=== PATIENT | female | born 1955 | race American Indian/Alaskan Native ===

== ENCOUNTER 2018-11-16 00:03 | Inpatient (IN) | payer SELFPAY ==
[2018-11-16 01:08] LABS: Basophils # (Auto) 0.1 K/mm3 (0.0-0.1); Basophils % (Auto) 0.9 % (0.0-1.8); Eosinophils % (Auto) 0.4 % (0.0-4.3); Hematocrit 40.8 % (30.3-42.9); Hemoglobin 13.5 gm/dl (10.1-14.3); Lymphocytes # (Auto) 1.6 K/mm3 (1.2-5.4); Lymphocytes % (Auto) 26.3 % (13.4-35.0); Mean Corpuscular HGB Conc 33 % (30-34); Mean Corpuscular Volume 74 fl (79-97); Monocytes # (Auto) 0.7 K/mm3 (0.0-0.8); Monocytes % (Auto) 11.8 % (0.0-7.3); Red Blood Count 5.53 M/mm3 (3.65-5.03); Red Cell Distribution Width 18.8 % (13.2-15.2)
[2018-11-16 01:23] LABS: Calcium 9.6 mg/dL (8.4-10.2)
[2018-11-16 01:25] LABS: Platelet Count 266 K/mm3 (140-440)
[2018-11-16] MEDS ORDERED: NORMODYNE IV ONE (02:22)
[2018-11-16] MEDS ORDERED: VANCOMYCIN/NS 1 GM/250 ML 1 GM/250 ML BAG IV ONE (02:24)
[2018-11-16] MEDS ORDERED: MORPHINE IV ONE (02:40)
[2018-11-16] MEDS ORDERED: LASIX IV ONE (02:51)
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
--- NOTE | 2018-11-16 03:05 | XRay Report ---
PROCEDURE: XR CHEST 1V AP TECHNIQUE: Chest radiograph single view. HISTORY: LE edema COMPARISONS: None . FINDINGS: Heart: The heart size is prominent.. Mediastinum/Vessels: Normal. Lungs/Pleural space: Normal. Bony thorax: No acute osseous abnormality. Life support devices: None. IMPRESSION: There is no evidence of an acute infiltrate or effusion. Mild cardiomegaly.. This document is electronically signed by Lauren Herzog DO., November 16 2018 03:03:20 AM ET
--- NOTE | 2018-11-16 03:06 | XRay Report ---
PROCEDURE: XR FOOT 2V RT TECHNIQUE: Right foot radiographs, AP and lateral views. HISTORY: foot pain COMPARISONS: None . FINDINGS: Fracture (s) and/or Dislocation(s): None . Alignment: There is a moderate hallux valgus deformity . Joint space(s): Mild narrowing of the joint spaces . Soft tissues: Mild diffuse soft tissue swelling . Bone mineralization: Normal . Foreign bodies: None . Calcaneal spurring: Small inferior spur . IMPRESSION: There is no evidence of an acute fracture. Mild arthritis. Mild diffuse soft tissue swel ling. . This document is electronically signed by Lauren Herzog DO., November 16 2018 03:04:58 AM ET
--- NOTE | 2018-11-16 03:08 | XRay Report ---
PROCEDURE: XR FOOT 2V LT TECHNIQUE: Left foot radiographs, AP and lateral views. HISTORY: foot pain COMPARISONS: None . FINDINGS: Fracture (s) and/or Dislocation(s): None . Alignment: Mild hallux valgus deformity . Joint space(s): Mild narrowing of joint spaces . Soft tissues: Mild diffuse soft tissue swelling . Bone mineralization: Normal . Foreign bodies: None . Calcaneal spurring: Small inferior spur . IMPRESSION: There is no evidence of an acute fracture. Mild arthritis. Mild diffuse soft tissue swel ling . This document is electronically signed by Lauren Herzog DO., November 16 2018 03:06:31 AM ET
--- NOTE | 2018-11-16 03:13 | XRay Report ---
PROCEDURE: XR TIBIA FIBULA 2V RT TECHNIQUE: Right tibia and fibula radiographs, AP and lateral views. HISTORY: Leg swelling leg pain COMPARISONS: None. FINDINGS: Fracture (s) and/or Dislocation(s): None. Joint space(s): Normal. Soft tissues: Diffuse soft tissue swelling. Bone mineralization: Normal. Foreign bodies: None. IMPRESSION: No evidence of an acute fracture. There is mild diffuse soft tissue swelling. This document is electronically signed by Lauren Herzog DO., November 16 2018 03:11:51 AM ET
[2018-11-16 03:14] LABS: Albumin 2.9 g/dL (3.9-5); Bilirubin,Direct 0.8 mg/dL (0-0.2)
--- NOTE | 2018-11-16 03:17 | XRay Report ---
PROCEDURE: XR TIBIA FIBULA 2V LT TECHNIQUE: Left tibia and fibula radiographs, AP and lateral views. HISTORY: leg pain COMPARISONS: None. FINDINGS: Fracture (s) and/or Dislocation(s): None. Joint space(s): Normal. Soft tissues: There is generalized soft tissue swelling.. Bone mineralization: Normal. Foreign bodies: None. IMPRESSION: There is no acute bony abnormality. There is generalized soft tissue swelling.. This document is electronically signed by Cristóbal Regan MD., November 16 2018 03:15:32 AM ET
[2018-11-16] MEDS ORDERED: ZOFRAN IV PRN (04:19)
[2018-11-16] MEDS ORDERED: TYLENOL PO PRN (04:19)
[2018-11-16] MEDS ORDERED: PERCOCET 5/325 PO PRN (04:19)
[2018-11-16] MEDS ORDERED: SODIUM CHLORIDE FLUSH SYRINGE 10 ML IV PRN (04:19)
--- NOTE | 2018-11-16 04:25 | History and Physical Report ---
History of Present Illness Date of examination: 11/16/18 History of present illness: 63-year-old woman with a history of hypertension, chronic pain carcinogens through complaints of lower extremity edema over the last 1 month. She has been off her hydrochlorothiazide for 1 month. Denies any PND, orthopnea, shortness o f breath Constitutional: no weight loss, chills, fever Ears, eyes, nose, mouth and throat: no nasal congestion, no nasal discharge, no sinus pressure, no vision change, no red eye. Neck: No neck pain or rigidity. Cardiovascular: no chest pain, palpitations Respiratory: no cough, shortness of breath Gastrointestinal no abdominal pain, hemotochezia Genitourinary : no frequency , no hematuria Musculoskeletal: no joint swelling or muscle ache Integumentary: no rash, no pruritis Neurological: nono focal weakness Endocrine: no cold or heat intolerance, no polyuria or polydipsia Hematologic/Lymphatic: no easy bruising, no easy bleeding, no gland swelling Allergic/Immunologic: no urticaria, no angioedema. PAST MEDICAL HISTORY: Hypertension, chronic pain PAST SURGICAL HISTORY: Hernia repair, knee SOCIAL HISTORY: Denies alcohol, + smoked 2 packs per month,no drugs FAMILY HISTORY: Hypertension Medications and Allergies Allergies Allergy/AdvReac Type Severity Reaction Status Date / Time latex Allergy Hives Verified 11/16/18 02:29 Home Medications Medication Instructions Recorded Confirmed Last Taken Type HCTZ 25 mg PO DAILY 11/16/18 11/16/18 Unknown History Active Meds: Active Medications Acetaminophen (Tylenol) 650 mg PO Q4H PRN PRN Reason: Pain MILD(1-3)/Fever >100.5/CUEVAS Enoxaparin Sodium (Lovenox) 30 mg SUB-Q QDAY [facility] Furosemide (Lasix) 40 mg IV 0600,1800 [facility] Ondansetron HCl (Zofran) 4 mg IV Q8H PRN PRN Reason: Nausea And Vomiting Oxycodone/Acetaminophen (Percocet 5/325) 1 tab PO Q6H PRN PRN Reason: Pain, Moderate (4-6) Sodium Chloride (Sodium Chloride Flush Syringe 10 Ml) 10 ml IV BID [facility] Exam - Physical Exam Narrative exam: Gen. appearance: Patient lying in bed, no apparent distress HEENT: Normocephalic, atraumatic, pupils equally round and reactive to light, extraocular movement intact, and no sclericterus,. No JVD or thyromegaly or nodule,neck supple, no carotid bruit ,mucous membranes moist, no exudate or erythema Heart: S1, S2, regular rate and rhythm Lungs: Clear bilaterally, breathing comfortable Abdomen: Positive bowel sounds,+ hernia, non-tender, nondistended, no organomegaly Extremity 3+ edema up to knees, non cyanosis, clubbing Skin: Top of the right foot shallow wound without drainage, wound bed is clean no rash, dry, warm Neuro: Oriented 3, cranial nerves II-12 intact, speech is fluent, motor and sensory intact - Constitutional Vitals: Temp Pulse Resp BP Pulse Ox 97.5 F L 73 174 H 166/118 100 11/16/18 00:20 11/16/18 03:48 11/16/18 02:21 11/16/18 03:48 11/16/18 02:21 Results - Labs CBC & Chem 7: 11/16/18 00:33 11/16/18 00:33 Labs: Abnormal lab results 11/16/18 11/16/18 11/16/18 Range/Units 00:33 00:33 00:33 RBC 5.53 H (3.65-5.03) M/mm3 MCV 74 L (79-97) fl MCH 25 L (28-32) pg RDW 18.8 H (13.2-15.2) % [place] % (Auto) 11.8 H (0.0-7.3) % Sodium 133 L (137-145) mmol/L Chloride 95.3 L (98-107) mmol/L Glucose 136 H (65-100) mg/dL Total Bilirubin (0.1-1.2) mg/dL Direct Bilirubin (0-0.2) mg/dL NT-Pro-B Natriuret Pep 6118 H (0-900) pg/mL Albumin (3.9-5) g/dL 11/16/18 Range/Units 00:33 RBC (3.65-5.03) M/mm3 MCV (79-97) fl MCH (28-32) pg RDW (13.2-15.2) % [place] % (Auto) (0.0-7.3) % Sodium (137-145) mmol/L Chloride (98-107) mmol/L Glucose (65-100) mg/dL Total Bilirubin 1.60 H (0.1-1.2) mg/dL Direct Bilirubin 0.8 H (0-0.2) mg/dL NT-Pro-B Natriuret Pep (0-900) pg/mL Albumin 2.9 L (3.9-5) g/dL - Imaging and Cardiology EKG: image reviewed Chest x-ray: report reviewed Assessment and Plan X-ray of the foot, tib-fib reviewed Assessment Lower extremity edema with elevated BNP, evaluate for CHF Hypertension Lower extremity wound Plan Admit to medicine Diurese with IV Lasix, check echo Consult wound care, DVT prophylaxis
[2018-11-16] MEDS: LASIX IV SCH ×2 (06:20→17:54)
[2018-11-16] MEDS ORDERED: LOVENOX SUB-Q SCH (10:00)
[2018-11-16] MEDS: LOVENOX SUB-Q SCH (10:20)
[2018-11-16] MEDS: SODIUM CHLORIDE FLUSH SYRINGE 10 ML IV SCH ×2 (10:21→22:06)
--- NOTE | 2018-11-16 15:37 | Progress Note ---
History Interval history: Patient was seen and evaluated this morning. Admitted for bilateral leg swelling and elevated BNP. Echo was ordered. Vision is on IV Lasix. Continue management as outlined in the H&P. Hospitalist Physical - Constitutional Vitals: Temp Pulse Resp BP Pulse Ox 97.3 F L 79 18 153/104 96 11/16/18 12:45 11/16/18 12:45 11/16/18 12:45 11/16/18 12:45 11/16/18 12:45 Results - Labs CBC & Chem 7: 11/16/18 00:33 11/16/18 00:33 Labs: Laboratory Last Values WBC 6.0 K/mm3 (4.5-11.0) 11/16/18 00:33 RBC 5.53 M/mm3 (3.65-5.03) H 11/16/18 00:33 Hgb 13.5 gm/dl (10.1-14.3) 11/16/18 00:33 Hct 40.8 % (30.3-42.9) 11/16/18 00:33 MCV 74 fl (79-97) L 11/16/18 00:33 MCH 25 pg (28-32) L 11/16/18 00:33 MCHC 33 % (30-34) 11/16/18 00:33 RDW 18.8 % (13.2-15.2) H 11/16/18 00:33 Plt Count 266 K/mm3 (140-440) 11/16/18 00:33 Lymph % (Auto) 26.3 % (13.4-35.0) 11/16/18 00:33 [place] % (Auto) 11.8 % (0.0-7.3) H 11/16/18 00:33 Eos % (Auto) 0.4 % (0.0-4.3) 11/16/18 00:33 Baso % (Auto) 0.9 % (0.0-1.8) 11/16/18 00:33 Lymph # 1.6 K/mm3 (1.2-5.4) 11/16/18 00:33 [place] # 0.7 K/mm3 (0.0-0.8) 11/16/18 00:33 Eos # 0.0 K/mm3 (0.0-0.4) 11/16/18 00:33 Baso # 0.1 K/mm3 (0.0-0.1) 11/16/18 00:33 Seg Neutrophils % 60.6 % (40.0-70.0) 11/16/18 00:33 Seg Neutrophils # 3.7 K/mm3 (1.8-7.7) 11/16/18 00:33 Sodium 133 mmol/L (137-145) L 11/16/18 00:33 Potassium 3.9 mmol/L (3.6-5.0) 11/16/18 00:33 Chloride 95.3 mmol/L (98-107) L 11/16/18 00:33 Carbon Dioxide 24 mmol/L (22-30) 11/16/18 00:33 Anion Gap 18 mmol/L 11/16/18 00:33 BUN 17 mg/dL (7-17) 11/16/18 00:33 Creatinine 1.1 mg/dL (0.7-1.2) 11/16/18 00:33 Estimated GFR 50 ml/min 11/16/18 00:33 BUN/Creatinine Ratio 15 % 11/16/18 00:33 Glucose 136 mg/dL (65-100) H 11/16/18 00:33 Calcium 9.6 mg/dL (8.4-10.2) 11/16/18 00:33 Total Bilirubin 1.60 mg/dL (0.1-1.2) H 11/16/18 00:33 Direct Bilirubin 0.8 mg/dL (0-0.2) H 11/16/18 00:33 Indirect Bilirubin 0.8 mg/dL 11/16/18 00:33 AST 29 units/L (5-40) 11/16/18 00:33 ALT 33 units/L (7-56) 11/16/18 00:33 Alkaline Phosphatase 70 units/L (35-129) 11/16/18 00:33 Troponin T 0.017 ng/mL (0.00-0.029) 11/16/18 00:33 NT-Pro-B Natriuret Pep 6118 pg/mL (0-900) H 11/16/18 00:33 Total Protein 7.7 g/dL (6.3-8.2) 11/16/18 00:33 Albumin 2.9 g/dL (3.9-5) L 11/16/18 00:33 Albumin/Globulin Ratio 0.6 % 11/16/18 00:33 Active Medications - Current Medications Current Medications: Generic Name Dose Route Start Last Admin Trade Name Freq PRN Reason Stop Dose Admin Acetaminophen 650 mg 11/16/18 04:19 Tylenol PO Q4H PRN Pain MILD(1-3)/Fever >100.5/CUEVAS Enoxaparin Sodium 40 mg 11/16/18 10:00 11/16/18 10:20 Lovenox SUB-Q 40 mg QDAY@1000 [facility] Administration Furosemide 40 mg 11/16/18 06:00 11/16/18 06:20 Lasix IV 40 mg 0600,1800 [facility] Administration Ondansetron HCl 4 mg 11/16/18 04:19 Zofran IV Q8H PRN Nausea And Vomiting Oxycodone/Acetaminophen 1 tab 11/16/18 04:19 Percocet 5/325 PO Q6H PRN Pain, Moderate (4-6) Sodium Chloride 10 ml 11/16/18 10:00 11/16/18 10:21 Sodium Chloride Flush Syringe 10 Ml IV 10 ml BID [facility] Administration Sodium Chloride 10 ml 11/16/18 04:19 Sodium Chloride Flush Syringe 10 Ml IV PRN PRN LINE FLUSH
[2018-11-16] MEDS ORDERED: APRESOLINE IV PRN (22:10)
[2018-11-17] MEDS: LASIX IV SCH ×2 (06:15→19:32)
[2018-11-17 08:10] LABS: Basophils # (Auto) 0.1 K/mm3 (0.0-0.1); Basophils % (Auto) 1.6 % (0.0-1.8); Eosinophils % (Auto) 0.6 % (0.0-4.3); Hematocrit 41.2 % (30.3-42.9); Hemoglobin 13.3 gm/dl (10.1-14.3); Lymphocytes # (Auto) 1.7 K/mm3 (1.2-5.4); Lymphocytes % (Auto) 29.7 % (13.4-35.0); Mean Corpuscular HGB Conc 32 % (30-34); Mean Corpuscular Volume 72 fl (79-97); Monocytes # (Auto) 0.7 K/mm3 (0.0-0.8); Monocytes % (Auto) 11.8 % (0.0-7.3); Platelet Count 235 K/mm3 (140-440); Red Blood Count 5.69 M/mm3 (3.65-5.03)
[2018-11-17 09:06] LABS: BUN/Creatinine Ratio 20; Blood Urea Nitrogen 16 mg/dL (7-17); Calcium 9.2 mg/dL (8.4-10.2); Hemolysis Index 246
[2018-11-17] MEDS ORDERED: ULTRAM PO PRN (09:50)
[2018-11-17] MEDS ORDERED: COZAAR PO SCH (10:00)
[2018-11-17] MEDS: LOVENOX SUB-Q SCH ×2 (11:01→12:26)
[2018-11-17] MEDS: SODIUM CHLORIDE FLUSH SYRINGE 10 ML IV SCH ×2 (11:03→22:16)
--- NOTE | 2018-11-17 13:47 | Progress Note ---
Assessment and Plan - Patient Problems (1) CHF (congestive heart failure) Current Visit: Yes Status: Acute Qualifiers: Heart failure type: unspecified Heart failure chronicity: acute Qualified Code(s): I50.9 - Heart failure, unspecified Plan to address problem: Really very well compensated. May have not lower extremity edema. Has echo pending. (2) Hypertension Current Visit: Yes Status: Acute Qualifiers: Hypertension type: essential hypertension Qualified Code(s): I10 - Essential (primary) hypertension Plan to address problem: Upper attention has remains suboptimally controlled. Had a long conversation about patient's suboptimal control blood pressure and the Effexor could have a lower extremity edema. We'll start patient on losartan 50 mg. Echo pending to rule out congestive heart failure. (3) Swelling of both lower extremities Current Visit: Yes Status: Acute Plan to address problem: PT has swelling bilateral lower extremities has now solving. On IV Lasix. Will hold hydrochlorothiazide which she warts. He needs stronger medications Lasix this time. Can change back in 1-2 days if she so says. (4) Nausea Current Visit: Yes Status: Acute Plan to address problem: At present appears to be secondary to morphine and Percocet will DC these items. And continue tramadol. History Interval history: Patient complains today mostly of nausea. Hospital course complicated by the morphine and Percocet she stated did not help her stomach. Patient refused to get echo today because she could not get her tramadol. It was also noted the patient blood pressure was suboptimally controlled 171/105 and 161 was 116 Hospitalist Physical - Constitutional Vitals: Temp Pulse Resp BP Pulse Ox 97.4 F L 97 H 18 150/100 98 11/17/18 09:05 11/17/18 11:41 11/17/18 09:05 11/17/18 11:41 11/17/18 11:41 General appearance: Present: no acute distress, mild distress - EENT Eyes: Present: PERRL, EOM intact ENT: hearing intact, clear oral mucosa, dentition normal, oropharyngeal erythema, no poor dentition, no thrush - Neck Neck: Present: supple, normal ROM. Absent: rigidity, enlarged thyroid, masses or JVD, cervical LAD - Respiratory Respiratory: bilateral: CTA - Cardiovascular Rhythm: regular - Extremities Extremities: no ischemia, pulses intact, pulses symmetrical, No edema, abnormal Extremity abnormal: edema, other (I'll trace edema not bad at all.) - Abdominal General gastrointestinal: soft, non-tender, tender, rigid, normal bowel sounds - Integumentary Integumentary: Present: clear, warm, dry - Psychiatric Psychiatric: appropriate mood/affect, intact judgment & insight - Neurologic Neurologic: CNII-XII intact, focal deficits Results - Labs CBC & Chem 7: 11/17/18 07:31 11/17/18 07:31 Labs: Laboratory Last Values WBC 5.9 K/mm3 (4.5-11.0) 11/17/18 07:31 RBC 5.69 M/mm3 (3.65-5.03) H 11/17/18 07:31 Hgb 13.3 gm/dl (10.1-14.3) 11/17/18 07:31 Hct 41.2 % (30.3-42.9) 11/17/18 07:31 MCV 72 fl (79-97) L 11/17/18 07:31 MCH 23 pg (28-32) L 11/17/18 07:31 MCHC 32 % (30-34) 11/17/18 07:31 RDW 19.0 % (13.2-15.2) H 11/17/18 07:31 Plt Count 235 K/mm3 (140-440) 11/17/18 07:31 Lymph % (Auto) 29.7 % (13.4-35.0) 11/17/18 07:31 [place] % (Auto) 11.8 % (0.0-7.3) H 11/17/18 07:31 Eos % (Auto) 0.6 % (0.0-4.3) 11/17/18 07:31 Baso % (Auto) 1.6 % (0.0-1.8) 11/17/18 07:31 Lymph # 1.7 K/mm3 (1.2-5.4) 11/17/18 07:31 [place] # 0.7 K/mm3 (0.0-0.8) 11/17/18 07:31 Eos # 0.0 K/mm3 (0.0-0.4) 11/17/18 07:31 Baso # 0.1 K/mm3 (0.0-0.1) 11/17/18 07:31 Seg Neutrophils % 56.3 % (40.0-70.0) 11/17/18 07:31 Seg Neutrophils # 3.3 K/mm3 (1.8-7.7) 11/17/18 07:31 Sodium 135 mmol/L (137-145) L 11/17/18 07:31 Potassium 4.9 mmol/L (3.6-5.0) D 11/17/18 07:31 Chloride 96.8 mmol/L (98-107) L 11/17/18 07:31 Carbon Dioxide 22 mmol/L (22-30) 11/17/18 07:31 Anion Gap 21 mmol/L 11/17/18 07:31 BUN 16 mg/dL (7-17) 11/17/18 07:31 Creatinine 0.8 mg/dL (0.7-1.2) 11/17/18 07:31 Estimated GFR > 60 ml/min 11/17/18 07:31 BUN/Creatinine Ratio 20 % 11/17/18 07:31 Glucose 102 mg/dL (65-100) H 11/17/18 07:31 Calcium 9.2 mg/dL (8.4-10.2) 11/17/18 07:31 Total Bilirubin 1.60 mg/dL (0.1-1.2) H 11/16/18 00:33 Direct Bilirubin 0.8 mg/dL (0-0.2) H 11/16/18 00:33 Indirect Bilirubin 0.8 mg/dL 11/16/18 00:33 AST 29 units/L (5-40) 11/16/18 00:33 ALT 33 units/L (7-56) 11/16/18 00:33 Alkaline Phosphatase 70 units/L (35-129) 11/16/18 00:33 Troponin T 0.017 ng/mL (0.00-0.029) 11/16/18 00:33 NT-Pro-B Natriuret Pep 6118 pg/mL (0-900) H 11/16/18 00:33 Total Protein 7.7 g/dL (6.3-8.2) 11/16/18 00:33 Albumin 2.9 g/dL (3.9-5) L 11/16/18 00:33 Albumin/Globulin Ratio 0.6 % 11/16/18 00:33 Active Medications - Current Medications Current Medications: Generic Name Dose Route Start Last Admin Trade Name Freq PRN Reason Stop Dose Admin Acetaminophen 650 mg 11/16/18 04:19 Tylenol PO Q4H PRN Pain MILD(1-3)/Fever >100.5/CUEVAS Enoxaparin Sodium 40 mg 11/16/18 10:00 11/17/18 12:26 Lovenox SUB-Q Not Given QDAY@1000 [facility] Furosemide 40 mg 11/16/18 06:00 11/17/18 06:15 Lasix IV Not Given 0600,1800 [facility] Hydralazine HCl 5 mg 11/16/18 22:10 11/16/18 23:51 Apresoline IV 5 mg Q6HR PRN Administration Hypertension Losartan Potassium 50 mg 11/17/18 10:00 11/17/18 11:02 Cozaar PO 50 mg QDAY [facility] Administration Ondansetron HCl 4 mg 11/16/18 04:19 Zofran IV Q8H PRN Nausea And Vomiting Oxycodone/Acetaminophen 1 tab 11/16/18 04:19 Percocet 5/325 PO Q6H PRN Pain, Moderate (4-6) Sodium Chloride 10 ml 11/16/18 10:00 11/17/18 11:03 Sodium Chloride Flush Syringe 10 Ml IV 10 ml BID [facility] Administration Sodium Chloride 10 ml 11/16/18 04:19 Sodium Chloride Flush Syringe 10 Ml IV PRN PRN LINE FLUSH Tramadol HCl 50 mg 11/17/18 09:50 11/17/18 11:01 Ultram PO 50 mg Q6H PRN Administration Pain, Moderate (4-6)
--- NOTE | 2018-11-17 17:27 | Consultation ---
History of Present Illness Consult date: 11/17/18 Requesting physician: DREW CHOE Consult reason: other (cardiac thrombus) History of present illness: The patient claims that she presented to the hospital due to a 1 month history of bilateral leg edema. She denies leg pain except for pain related to leg ulcers. She denies shortness of breath or orthopnea. There is no chest pain. She was noted to have elevated BNP at presentation. Her BP was significantly elevated. Echocardiogram performed today revealed a mural thrombus at the LV apex measuring 1.4 x 1.2 cm across. There is moderate to severe tricuspid regurgitation. There is moderate LVH with severe global LV hypokinesis and an EF of 15%. The right ventricle appears dilated with mildly reduced systolic function. Past History Past Medical History: hypertension, other (PUD) Past Surgical History: Other (Knee surgery and surgery for PUD) Social history: smoking. denies: alcohol abuse Family history: no significant family history Medications and Allergies Allergies Allergy/AdvReac Type Severity Reaction Status Date / Time latex Allergy Hives Verified 11/16/18 02:29 Home Medications Medication Instructions Recorded Confirmed Last Taken Type HCTZ 25 mg PO DAILY 11/16/18 11/16/18 Unknown History Active Meds: Active Medications Acetaminophen (Tylenol) 650 mg PO Q4H PRN PRN Reason: Pain MILD(1-3)/Fever >100.5/CUEVAS Enoxaparin Sodium (Lovenox) 40 mg SUB-Q QDAY@1000 [facility] Last Admin: 11/17/18 12:26 Dose: Not Given Documented by: Furosemide (Lasix) 40 mg IV 0600,1800 [facility] Last Admin: 11/17/18 06:15 Dose: Not Given Documented by: Hydralazine HCl (Apresoline) 5 mg IV Q6HR PRN PRN Reason: Hypertension Last Admin: 11/16/18 23:51 Dose: 5 mg Documented by: Losartan Potassium (Cozaar) 50 mg PO QDAY [facility] Last Admin: 11/17/18 11:02 Dose: 50 mg Documented by: Ondansetron HCl (Zofran) 4 mg IV Q8H PRN PRN Reason: Nausea And Vomiting Sodium Chloride (Sodium Chloride Flush Syringe 10 Ml) 10 ml IV BID [facility] Last Admin: 11/17/18 11:03 Dose: 10 ml Documented by: Sodium Chloride (Sodium Chloride Flush Syringe 10 Ml) 10 ml IV PRN PRN PRN Reason: LINE FLUSH Tramadol HCl (Ultram) 50 mg PO Q6H PRN PRN Reason: Pain, Moderate (4-6) Last Admin: 11/17/18 11:01 Dose: 50 mg Documented by: Review of Systems Constitutional: no fever, no chills Ears, nose, mouth and throat: no ear pain, no ear discharge, no sore throat Cardiovascular: edema, no chest pain, no orthopnea, no palpitations, no lightheadedness, no shortness of breath Respiratory: no cough, no hemoptysis, no shortness of breath Gastrointestinal: no abdominal pain, no nausea, no vomiting, no diarrhea, no constipation Genitourinary Female: no dysuria, no urinary frequency Rectal: no pain, no bleeding Musculoskeletal: no neck stiffness, no neck pain, no myalgias Integumentary: no rash, no pruritis Neurological: no weakness, no parathesias, no numbness, no tingling, no headaches Endocrine: no cold intolerance, no heat intolerance Hematologic/Lymphatic: no easy bruising, no easy bleeding Allergic/Immunologic: no urticaria, no wheezing Physical Examination Vital Signs Last Vital Signs Temp 97.6 F 11/17/18 16:52 Pulse 99 H 11/17/18 16:52 Resp 16 11/17/18 16:52 BP 150/98 11/17/18 16:52 Pulse Ox 94 11/17/18 16:52 General appearance: no acute distress HEENT: Positive: EOMI, Normocephaly, Mucus Membranes Moist Neck: Positive: neck supple, trachea midline Cardiac: Positive: Reg Rate and Rhythm, S1/S2 Lungs: Positive: clear to auscultation Neuro: Positive: Grossly Intact Abdomen: Positive: Soft, Active Bowel Sounds. Negative: Tender Skin: Positive: Ulceration (on legs), Other (changes of chronic venous stasis in both feet) Extremities: Present: +3 Edema (pitting bilateral leg) Results 11/17/18 07:31 11/17/18 07:31 CBC 11/17/18 Range/Units 07:31 WBC 5.9 (4.5-11.0) K/mm3 RBC 5.69 H (3.65-5.03) M/mm3 Hgb 13.3 (10.1-14.3) gm/dl Hct 41.2 (30.3-42.9) % Plt Count 235 (140-440) K/mm3 Lymph # 1.7 (1.2-5.4) K/mm3 [place] # 0.7 (0.0-0.8) K/mm3 Eos # 0.0 (0.0-0.4) K/mm3 Baso # 0.1 (0.0-0.1) K/mm3 Comprehensive Metabolic Panel 11/17/18 Range/Units 07:31 Sodium 135 L (137-145) mmol/L Potassium 4.9 D (3.6-5.0) mmol/L Chloride 96.8 L (98-107) mmol/L Carbon Dioxide 22 (22-30) mmol/L BUN 16 (7-17) mg/dL Creatinine 0.8 (0.7-1.2) mg/dL Glucose 102 H (65-100) mg/dL Calcium 9.2 (8.4-10.2) mg/dL - Imaging and Cardiology Echo: image reviewed EKG: image reviewed EKG interpretations - Telemetry EKG Rhythm: Sinus Rhythm - EKG Sinus rhythms and dysrhythmias: sinus rhythm Assessment and Plan Initiate IV heparin. Coumadin should be added subsequently. Optimize antihypertensive regimen. I agree with diuretics. Obtain venous duplex of both LEs. Obtain TFTs. - Patient Problems (1) Left ventricular apical thrombus Current Visit: Yes Status: Acute (2) Uncontrolled hypertension Current Visit: Yes Status: Acute (3) Cardiomyopathy Current Visit: Yes Status: Acute (4) Bilateral leg edema Current Visit: Yes Status: Acute (5) Hypertensive heart disease Current Visit: Yes Status: Chronic Qualifiers: Heart failure presence: with heart failure (6) Chronic venous insufficiency Current Visit: Yes Status: Chronic (7) H/O peptic ulcer Current Visit: Yes Status: Resolved
[2018-11-17] MEDS ORDERED: APRESOLINE PO SCH (18:00)
--- NOTE | 2018-11-17 18:20 | Event Note ---
Date: 11/17/18 newly dx lv thrombus will strart on heprin drip
[2018-11-17] MEDS: COZAAR PO SCH (19:31)
[2018-11-17 22:17] LABS: INR 1.42 (0.87-1.13)
[2018-11-17 22:19] LABS: Hematocrit 38.9 % (30.3-42.9); Hemoglobin 12.4 gm/dl (10.1-14.3); Partial Thromboplastin Time 31.9 Sec. (24.2-36.6)
[2018-11-17] MEDS: APRESOLINE PO SCH (22:23)
[2018-11-17] MEDS: COREG PO SCH (22:23)
[2018-11-17] MEDS: HEPARIN/ 0.45% NACL-25,000 UNIT/500 ML 25,000 UNIT/500 ML BAG IV SCH (22:36)
[2018-11-18 05:48] LABS: BUN/Creatinine Ratio 15; Blood Urea Nitrogen 17 mg/dL (7-17); Calcium 8.7 mg/dL (8.4-10.2); Hematocrit 38.6 % (30.3-42.9); Hemoglobin 12.3 gm/dl (10.1-14.3); Hemolysis Index 3; Red Blood Count 5.31 M/mm3 (3.65-5.03)
[2018-11-18 05:49] LABS: Basophils % (Auto) 0.5 % (0.0-1.8); Eosinophils % (Auto) 0.8 % (0.0-4.3); Lymphocytes # (Auto) 1.6 K/mm3 (1.2-5.4); Lymphocytes % (Auto) 25.5 % (13.4-35.0); Mean Corpuscular HGB Conc 32 % (30-34); Mean Corpuscular Volume 73 fl (79-97); Mean Platelet Volume 7.9 fl (6-12); Monocytes # (Auto) 0.7 K/mm3 (0.0-0.8); Monocytes % (Auto) 10.3 % (0.0-7.3); Platelet Count 214 K/mm3 (140-440); Red Cell Distribution Width 19.1 % (13.2-15.2)
[2018-11-18 05:50] LABS: Eosinophils # (Auto) 0.1 K/mm3 (0.0-0.4)
[2018-11-18] MEDS: LASIX IV SCH ×2 (06:28→18:38)
[2018-11-18] MEDS: COZAAR PO SCH (09:36)
[2018-11-18] MEDS: COREG PO SCH ×2 (09:37→22:08)
[2018-11-18] MEDS: APRESOLINE PO SCH ×3 (09:37→22:09)
[2018-11-18] MEDS: SODIUM CHLORIDE FLUSH SYRINGE 10 ML IV SCH ×2 (10:00→22:09)
--- NOTE | 2018-11-18 14:00 | Progress Note ---
Assessment and Plan Pt presented with acutely decompensated HF and echo showed a mural thrombus at the LV apex measuring 1.4 x 1.2 cm across, moderate to severe tricuspid regurgitation. moderate LVH with severe global LV hypokinesis and an EF of 15%, RV dilated with mildly reduced systolic function. Pt denies any known prior cardiac issues, including CAD, AMI or HF. Pt still with c/o orthopnea and is unable to lie flat on evaluation. Once orthopnea improves, will plan for coronary angiography to r/o ischemic CMP. Cont present cardiac management, including IV lasix, coreg, losartan, heparin gtt. Plan to initiate coumadin following ischemic evaluation. F/u BLE venous dopplers. The patient has been seen in conjunction with Dr. Crockett who agrees with the assessment and plan of care. - Patient Problems (1) Left ventricular apical thrombus Current Visit: Yes Status: Acute (2) Uncontrolled hypertension Current Visit: Yes Status: Acute (3) Acute heart failure with reduced ejection fraction Current Visit: Yes Status: Acute (4) Cardiomyopathy Current Visit: Yes Status: Acute (5) Bilateral leg edema Current Visit: Yes Status: Acute (6) Hypertensive heart disease Current Visit: Yes Status: Chronic Qualifiers: Heart failure presence: with heart failure (7) Chronic venous insufficiency Current Visit: Yes Status: Chronic (8) H/O peptic ulcer Current Visit: Yes Status: Resolved (9) Tricuspid regurgitation Current Visit: Yes Status: Chronic Subjective Date of service: 11/18/18 Principal diagnosis: HF; LV thrombus Interval history: pt resting in bed, states SOB improving, c/o nasal congestion. in SR on tele. Objective Last Vital Signs Temp 98.2 F 11/18/18 09:37 Pulse 92 H 11/18/18 09:36 Resp 18 11/18/18 09:36 BP 137/88 11/18/18 09:36 Pulse Ox 99 11/18/18 09:36 - Physical Examination General: No Apparent Distress HEENT: Positive: EOMI, Normocephaly, Mucus Membranes Moist Neck: Positive: neck supple, trachea midline Cardiac: Positive: Reg Rate and Rhythm, S1/S2 Lungs: Positive: Decreased Breath Sounds Neuro: Positive: Grossly Intact Abdomen: Positive: Soft, Active Bowel Sounds. Negative: Tender Skin: Positive: Ulceration (on legs), Other (changes of chronic venous stasis in both feet) Extremities: Present: +3 Edema (pitting bilateral leg) - Labs and Meds Coagulation 11/17/18 Range/Units 21:41 PT 18.3 H (12.2-14.9) Sec. INR 1.42 H (0.87-1.13) APTT 31.9 (24.2-36.6) Sec. CBC 11/17/18 11/18/18 Range/Units 21:41 05:07 WBC 6.3 (4.5-11.0) K/mm3 RBC 5.31 H (3.65-5.03) M/mm3 Hgb 12.4 12.3 (10.1-14.3) gm/dl Hct 38.9 38.6 (30.3-42.9) % Plt Count 219 214 (140-440) K/mm3 Lymph # 1.6 (1.2-5.4) K/mm3 [place] # 0.7 (0.0-0.8) K/mm3 Eos # 0.1 (0.0-0.4) K/mm3 Baso # 0.0 (0.0-0.1) K/mm3 Comprehensive Metabolic Panel 11/18/18 Range/Units 05:07 Sodium 136 L (137-145) mmol/L Potassium 3.7 D (3.6-5.0) mmol/L Chloride 98.7 (98-107) mmol/L Carbon Dioxide 26 (22-30) mmol/L BUN 17 (7-17) mg/dL Creatinine 1.1 (0.7-1.2) mg/dL Glucose 106 H (65-100) mg/dL Calcium 8.7 (8.4-10.2) mg/dL - Imaging and Cardiology EKG: image reviewed Echo: image reviewed - EKG Sinus rhythms and dysrhythmias: sinus rhythm
--- NOTE | 2018-11-18 14:33 | Progress Note ---
Assessment and Plan Acute Left ventricular apical thrombus Uncontrolled hypertension Acute heart failure with reduced ejection fraction, Ef 15% Bilateral leg edema, likely from CHF, need to r/o DVT Hypertensive heart disease Chronic venous insufficiency H/O peptic ulcer - monitor with serial CE and EKG - consulted cardiology - cardiac diet now, daily weights, monitor in's and O's - Pt still with c/o orthopnea and is unable to lie flat on evaluation. Once orthopnea improves plan for coronary angiography to r/o ischemic CMP. - Cont present cardiac management, including IV lasix, coreg, losartan, heparin gtt. - --Plan to initiate coumadin following ischemic evaluation. - F/u BLE venous dopplers. - provide DVT Px with heparin ggt Brief History: Pt presented with a one-month history of bilateral leg edema. Being treated for acutely decompensated HF and echo showed a mural thrombus at the LV apex measuring 1.4 x 1.2 cm across, severe global LV hypokinesis and an EF of 15% Radiological data: Chest x-ray A 2-D echo Hospitalist Physical exam: GENERAL: well-developed and well-nourished lying on bed appeared to be in no discomfort. HEENT: Normocephalic. Atraumatic. No conjunctival congestion or icterus. Patient has moist mucous membranes. NECK: Supple. Trachea midline. CHEST/LUNGS: Clear to auscultated bilaterally, breathing nonlabored. No wheezes crackles or rhonchi. HEART/CARDIOVASCULAR: Regular in rate and rhythm. S1 and S2 positive. ABDOMEN: Abdomen is soft, nontender. Patient has normal bowel sounds. SKIN: There is no rash. Warm and dry. NEURO: No focal motor deficit. Follows command. MUSCULOSKELETAL: No joint effusion or tenderness. EXTRIMITY: No edema, no cyanosis or clubbing. PSYCH: Cooperative. Subjective Date of service: 11/18/18 Principal diagnosis: HF; LV thrombus Interval history: patient seen and examined c/o constipation no chest pain Objective - Constitutional Vitals: Vital Signs - 12hr 11/18/18 11/18/18 11/18/18 05:00 05:02 09:36 Temperature 97.5 F L 97.5 F L Pulse Rate 85 87 92 H Respiratory 18 18 18 Rate Blood Pressure 149/101 137/88 Blood Pressure 141/98 [Left] O2 Sat by Pulse 99 99 99 Oximetry 11/18/18 09:37 Temperature 98.2 F Pulse Rate Respiratory Rate Blood Pressure Blood Pressure [Left] O2 Sat by Pulse Oximetry - Labs CBC & Chem 7: 11/19/18 06:34 11/19/18 06:34 Labs: Abnormal lab results 11/17/18 11/18/18 11/18/18 Range/Units 21:41 05:07 05:07 RBC 5.31 H (3.65-5.03) M/mm3 MCV 73 L (79-97) fl MCH 23 L (28-32) pg RDW 19.1 H (13.2-15.2) % [place] % (Auto) 10.3 H (0.0-7.3) % PT 18.3 H (12.2-14.9) Sec. INR 1.42 H (0.87-1.13) Sodium 136 L (137-145) mmol/L Glucose 106 H (65-100) mg/dL
[2018-11-18] MEDS ORDERED: DULCOLAX PR PRN (15:52)
--- NOTE | 2018-11-18 16:12 | Vascular Lab Report ---
PROCEDURE: VL VENOUS DUPLEX LE BILAT TECHNIQUE: HISTORY: BLE swelling COMPARISONS: None FINDINGS: Very prominent bilateral soft tissue swelling which limits examination repeating the study in the nex t 12 to 24 hours therefore may be helpful On the sales donor recruitment representative images submitted there is no evidence of deep venous thrombosis IMPRESSION: Bilaterally negative for DVT as discussed above. This document is electronically signed by Rigo Callejas MD., November 18 2018 04:10:20 PM ET
[2018-11-18] MEDS: MIRALAX 3350 PO SCH (16:25)
[2018-11-18] MEDS: HEPARIN/ 0.45% NACL-25,000 UNIT/500 ML 25,000 UNIT/500 ML BAG IV SCH (16:26)
[2018-11-18] MEDS: COLACE PO SCH ×2 (16:32→22:08)
[2018-11-19] MEDS: LASIX IV SCH ×2 (06:35→18:15)
[2018-11-19 07:25] LABS: Hematocrit 37.5 % (30.3-42.9); Hemoglobin 12.3 gm/dl (10.1-14.3)
[2018-11-19 07:41] LABS: BUN/Creatinine Ratio 17; Blood Urea Nitrogen 19 mg/dL (7-17); Calcium 8.5 mg/dL (8.4-10.2); Hemolysis Index 18
--- NOTE | 2018-11-19 08:09 | XRay Report ---
AP ABDOMEN: HISTORY: Abdominal pain. The abdominal gas pattern is unremarkable. No masses or organomegaly is identified and there is no gross evidence of free air or fluid. No significant soft tissue calcifications are noted. Surgical clips are identified near the GE junction. Mild cardiomegaly and trace left pleural effusion are noted. IMPRESSION: Unremarkable abdomen. Mild cardiomegaly and trace left pleural effusion.
[2018-11-19] MEDS: COZAAR PO SCH (10:44)
[2018-11-19] MEDS: MIRALAX 3350 PO SCH (10:44)
[2018-11-19] MEDS: APRESOLINE PO SCH ×3 (10:45→21:31)
[2018-11-19] MEDS: COREG PO SCH ×2 (10:45→21:31)
[2018-11-19] MEDS: COLACE PO SCH ×2 (10:45→21:32)
[2018-11-19] MEDS: HEPARIN/ 0.45% NACL-25,000 UNIT/500 ML 25,000 UNIT/500 ML BAG IV SCH (10:49)
[2018-11-19] MEDS: SODIUM CHLORIDE FLUSH SYRINGE 10 ML IV SCH ×2 (10:49→21:33)
--- NOTE | 2018-11-19 11:22 | Progress Note ---
Assessment and Plan Pt appears to be clinically improving. Cont present cardiac management, including IV lasix, coreg, losartan, heparin gtt. Plan to initiate coumadin following ischemic evaluation. Plan for coronary angiography in AM to r/o ischemic CMP. Indications, potential risks and benefits of LHC reviewed with pt and she is agreeable to proceed. NPO after MN. Replete K+ and f/u BMP and Mg in AM. The patient has been seen in conjunction with Dr. Crockett who agrees with the assessment and plan of care. - Patient Problems (1) Left ventricular apical thrombus Current Visit: Yes Status: Acute (2) Hypertension Current Visit: Yes Status: Chronic (3) Acute heart failure with reduced ejection fraction Current Visit: Yes Status: Acute (4) Cardiomyopathy Current Visit: Yes Status: Acute (5) Bilateral leg edema Current Visit: Yes Status: Acute (6) Hypertensive heart disease Current Visit: Yes Status: Chronic Qualifiers: Heart failure presence: with heart failure (7) Chronic venous insufficiency Current Visit: Yes Status: Chronic (8) H/O peptic ulcer Current Visit: Yes Status: Resolved (9) Tricuspid regurgitation Current Visit: Yes Status: Chronic (9) Hypokalemia Current Visit: Yes Status: Acute Subjective Date of service: 11/19/18 Principal diagnosis: HF; LV thrombus Interval history: pt resting in bed, laying flat comfortably, states SOB improving, c/o constipation. in SR on tele with 7 beat NSVT this AM, pt asymptomatic. Objective Last Vital Signs Temp 97.6 F 11/19/18 07:13 Pulse 84 11/19/18 07:13 Resp 18 11/19/18 07:13 BP 137/88 11/19/18 07:13 Pulse Ox 94 11/19/18 07:13 - Physical Examination General: No Apparent Distress HEENT: Positive: EOMI, Normocephaly, Mucus Membranes Moist Neck: Positive: neck supple, trachea midline Cardiac: Positive: Reg Rate and Rhythm, S1/S2 Lungs: Positive: Decreased Breath Sounds Neuro: Positive: Grossly Intact Abdomen: Positive: Soft, Active Bowel Sounds. Negative: Tender Skin: Positive: Ulceration (on legs), Other (changes of chronic venous stasis in both feet) Extremities: Present: +3 Edema (pitting bilateral leg) - Labs and Meds CBC 11/19/18 Range/Units 06:34 Hgb 12.3 (10.1-14.3) gm/dl Hct 37.5 (30.3-42.9) % Plt Count 207 (140-440) K/mm3 Comprehensive Metabolic Panel 11/19/18 Range/Units 06:34 Sodium 135 L (137-145) mmol/L Potassium 3.0 L (3.6-5.0) mmol/L Chloride 96.2 L (98-107) mmol/L Carbon Dioxide 26 (22-30) mmol/L BUN 19 H (7-17) mg/dL Creatinine 1.1 (0.7-1.2) mg/dL Glucose 114 H (65-100) mg/dL Calcium 8.5 (8.4-10.2) mg/dL - Imaging and Cardiology EKG: image reviewed Echo: image reviewed - EKG Sinus rhythms and dysrhythmias: sinus rhythm
[2018-11-19] MEDS ORDERED: K-DUR PO ONE ×2 (12:00→18:00)
[2018-11-19] MEDS ORDERED: NACL 0.9% 500 ML 500 ML IV SCH (12:00)
--- NOTE | 2018-11-19 15:54 | Progress Note ---
Assessment and Plan Acute Left ventricular apical thrombus Uncontrolled hypertension Acute heart failure with reduced ejection fraction, Ef 15% Bilateral leg edema, likely from CHF, Hypertensive heart disease Chronic venous insufficiency H/O peptic ulcer - monitor with serial CE and EKG - consulted cardiology - cardiac diet now, daily weights, monitor in's and O's - plan for coronary angiography to r/o ischemic CMP tomorrow. - Cont present cardiac management, including IV lasix, coreg, losartan, heparin gtt. - --Plan to initiate coumadin following ischemic evaluation. - negative BLE venous dopplers. - provide DVT Px with heparin ggt Brief History: Pt presented with a one-month history of bilateral leg edema. Being treated for acutely decompensated HF and echo showed a mural thrombus at the LV apex measuring 1.4 x 1.2 cm across, severe global LV hypokinesis and an EF of 15% Radiological data: Chest x-ray A 2-D echo Hospitalist Physical exam: GENERAL: well-developed and well-nourished lying on bed appeared to be in no discomfort. HEENT: Normocephalic. Atraumatic. No conjunctival congestion or icterus. Patient has moist mucous membranes. NECK: Supple. Trachea midline. CHEST/LUNGS: Clear to auscultated bilaterally, breathing nonlabored. No wheezes crackles or rhonchi. HEART/CARDIOVASCULAR: Regular in rate and rhythm. S1 and S2 positive. ABDOMEN: Abdomen is soft, nontender. Patient has normal bowel sounds. SKIN: There is no rash. Warm and dry. NEURO: No focal motor deficit. Follows command. MUSCULOSKELETAL: No joint effusion or tenderness. EXTRIMITY: No edema, no cyanosis or clubbing. PSYCH: Cooperative. Subjective Date of service: 11/19/18 Principal diagnosis: HF; LV thrombus Interval history: patient seen and examined still c/o constipation no chest pain Objective - Constitutional Vitals: Vital Signs - 12hr 11/19/18 11/19/18 11/19/18 04:38 06:03 07:13 Temperature 98.0 F 97.6 F Pulse Rate 83 78 84 Respiratory 18 18 Rate Blood Pressure 120/81 137/88 O2 Sat by Pulse 95 94 Oximetry 11/19/18 11:04 Temperature 97.6 F Pulse Rate 84 Respiratory 20 Rate Blood Pressure 129/81 O2 Sat by Pulse 96 Oximetry - Labs CBC & Chem 7: 11/20/18 05:30 11/20/18 05:30 Labs: Abnormal lab results 11/19/18 11/19/18 Range/Units 06:34 06:34 Heparin Anti-Xa Level 0.78 H (0.3-0.7) U.I./ml Sodium 135 L (137-145) mmol/L Potassium 3.0 L (3.6-5.0) mmol/L Chloride 96.2 L (98-107) mmol/L BUN 19 H (7-17) mg/dL Glucose 114 H (65-100) mg/dL
[2018-11-20] MEDS: LASIX IV SCH ×2 (05:31→19:34)
[2018-11-20] MEDS: HEPARIN/ 0.45% NACL-25,000 UNIT/500 ML 25,000 UNIT/500 ML BAG IV SCH (05:32)
[2018-11-20 06:40] LABS: Basophils % (Auto) 0.7 % (0.0-1.8); Eosinophils # (Auto) 0.1 K/mm3 (0.0-0.4); Eosinophils % (Auto) 1.1 % (0.0-4.3); Hematocrit 37.1 % (30.3-42.9); Hemoglobin 12.2 gm/dl (10.1-14.3); Lymphocytes # (Auto) 1.5 K/mm3 (1.2-5.4); Lymphocytes % (Auto) 23.8 % (13.4-35.0); Mean Corpuscular HGB Conc 33 % (30-34); Mean Corpuscular Volume 72 fl (79-97); Monocytes # (Auto) 0.8 K/mm3 (0.0-0.8); Monocytes % (Auto) 12.9 % (0.0-7.3); Platelet Count 195 K/mm3 (140-440); Red Blood Count 5.15 M/mm3 (3.65-5.03); Red Cell Distribution Width 19.5 % (13.2-15.2)
[2018-11-20 06:47] LABS: INR 1.29 (0.87-1.13)
[2018-11-20 06:58] LABS: BUN/Creatinine Ratio 18; Blood Urea Nitrogen 18 mg/dL (7-17); Calcium 8.1 mg/dL (8.4-10.2); Hemolysis Index 10
--- NOTE | 2018-11-20 10:44 | Progress Note ---
Assessment and Plan Cont present cardiac management, including IV lasix, coreg, losartan, heparin gtt. Plan to initiate coumadin following ischemic evaluation. Pt refusing C this AM due to abdominal pain and c/o being tired. She states she is agreeable to [facility] tomorrow AM. NPO after MN. Replete lytes and f/u BMP and Mg in AM. The patient has been seen in conjunction with Dr. Crockett who agrees with the assessment and plan of care. - Patient Problems (1) Left ventricular apical thrombus Current Visit: Yes Status: Acute (2) Hypertension Current Visit: Yes Status: Chronic (3) Acute heart failure with reduced ejection fraction Current Visit: Yes Status: Acute (4) Cardiomyopathy Current Visit: Yes Status: Acute (5) Bilateral leg edema Current Visit: Yes Status: Acute (6) Hypertensive heart disease Current Visit: Yes Status: Chronic Qualifiers: Heart failure presence: with heart failure (7) Chronic venous insufficiency Current Visit: Yes Status: Chronic (8) H/O peptic ulcer Current Visit: Yes Status: Resolved (9) Tricuspid regurgitation Current Visit: Yes Status: Chronic (9) Hypokalemia Current Visit: Yes Status: Acute Subjective Date of service: 11/20/18 Principal diagnosis: HF; LV thrombus Interval history: pt resting in bed, laying flat comfortably, no current cardiac complaints. c/o abdominal pain, states she had BM overnight. refusing cardiac cath this AM due to abdominal pain and being tired. Objective Last Vital Signs Temp 97.5 F L 11/20/18 04:15 Pulse 84 11/20/18 08:18 Resp 20 11/20/18 08:18 BP 117/70 11/20/18 08:18 Pulse Ox 97 11/20/18 08:18 - Physical Examination General: No Apparent Distress HEENT: Positive: EOMI, Normocephaly, Mucus Membranes Moist Neck: Positive: neck supple, trachea midline Cardiac: Positive: Reg Rate and Rhythm, S1/S2 Lungs: Positive: Decreased Breath Sounds Neuro: Positive: Grossly Intact Abdomen: Positive: Soft, Active Bowel Sounds. Negative: Tender Skin: Positive: Ulceration (on legs), Other (changes of chronic venous stasis in both feet) Extremities: Present: +3 Edema (pitting bilateral leg) - Labs and Meds Coagulation 11/20/18 Range/Units 05:30 PT 16.9 H (12.2-14.9) Sec. INR 1.29 H (0.87-1.13) CBC 11/20/18 Range/Units 05:30 WBC 6.5 (4.5-11.0) K/mm3 RBC 5.15 H (3.65-5.03) M/mm3 Hgb 12.2 (10.1-14.3) gm/dl Hct 37.1 (30.3-42.9) % Plt Count 195 (140-440) K/mm3 Lymph # 1.5 (1.2-5.4) K/mm3 [place] # 0.8 (0.0-0.8) K/mm3 Eos # 0.1 (0.0-0.4) K/mm3 Baso # 0.0 (0.0-0.1) K/mm3 Comprehensive Metabolic Panel 11/20/18 Range/Units 05:30 Sodium 133 L (137-145) mmol/L Potassium 3.4 L (3.6-5.0) mmol/L Chloride 95.5 L (98-107) mmol/L Carbon Dioxide 27 (22-30) mmol/L BUN 18 H (7-17) mg/dL Creatinine 1.0 (0.7-1.2) mg/dL Glucose 88 (65-100) mg/dL Calcium 8.1 L (8.4-10.2) mg/dL - Imaging and Cardiology EKG: image reviewed Echo: image reviewed - EKG Sinus rhythms and dysrhythmias: sinus rhythm
[2018-11-20] MEDS: MIRALAX 3350 PO SCH (10:54)
[2018-11-20] MEDS: COLACE PO SCH ×2 (10:55→22:36)
[2018-11-20] MEDS: COZAAR PO SCH (10:59)
[2018-11-20] MEDS: APRESOLINE PO SCH ×3 (11:00→22:36)
[2018-11-20] MEDS ORDERED: HEPARIN/ 0.45% NACL-25,000 UNIT/500 ML 25,000 UNIT/500 ML BAG IV SCH (11:00)
[2018-11-20] MEDS: COREG PO SCH ×2 (11:00→22:36)
[2018-11-20] MEDS: SODIUM CHLORIDE FLUSH SYRINGE 10 ML IV SCH ×2 (11:02→22:36)
[2018-11-20] MEDS ORDERED: K-DUR PO ONE (14:00)
[2018-11-20] MEDS ORDERED: MAGNESIUM SULFATE 3 GM in NACL 0.9% 100 ML IV ONE (14:00)
--- NOTE | 2018-11-20 15:25 | Consultation ---
History of Present Illness Consult date: 11/20/18 Chief complaint: Right dorsal foot ulcer - History of present illness History of present illness: 63 yo female admitted with acute CHF, BLE edema and LV thrombus. Noted to have an ulcer on the dorsum of her right foot on admission. No h/o DM or PVD. Past History Past Medical History: hypertension, other (PUD, Acute CHF, LV thrombus) Past Surgical History: Other (Knee surgery and surgery for PUD) Social history: smoking. denies: alcohol abuse Family history: no significant family history Medications and Allergies Allergies Allergy/AdvReac Type Severity Reaction Status Date / Time latex Allergy Hives Verified 11/16/18 02:29 Home Medications Medication Instructions Recorded Confirmed Last Taken Type HCTZ 25 mg PO DAILY 11/16/18 11/16/18 Unknown History Active Meds: Active Medications Acetaminophen (Tylenol) 650 mg PO Q4H PRN PRN Reason: Pain MILD(1-3)/Fever >100.5/CUEVAS Bisacodyl (Dulcolax) 10 mg [place] QDAY PRN PRN Reason: Constipation Carvedilol (Coreg) 6.25 mg PO BID [facility] Last Admin: 11/20/18 11:00 Dose: 6.25 mg Documented by: Docusate Sodium (Colace) 100 mg PO BID [facility] Last Admin: 11/20/18 10:55 Dose: Not Given Documented by: Furosemide (Lasix) 40 mg IV 0600,1800 [facility] Last Admin: 11/20/18 05:31 Dose: 40 mg Documented by: Hydralazine HCl (Apresoline) 50 mg PO TID [facility] Last Admin: 11/20/18 11:00 Dose: 50 mg Documented by: Heparin Sodium/Sodium Chloride (Heparin/ 0.45% Nacl-25,000 Unit/500 Ml) 25,000 unit in 500 mls @ 29 mls/hr IV TITR [facility]; Protocol Stop: 11/21/18 06:00 Magnesium Sulfate 3 gm/ Sodium (Chloride) 106 mls @ 35.333 mls/hr IV ONCE ONE Stop: 11/20/18 16:59 Losartan Potassium (Cozaar) 100 mg PO QDAY [facility] Last Admin: 11/20/18 10:59 Dose: 100 mg Documented by: Ondansetron HCl (Zofran) 4 mg IV Q8H PRN PRN Reason: Nausea And Vomiting Polyethylene Glycol (Miralax 3350) 17 gm PO QDAY [facility] Last Admin: 11/20/18 10:54 Dose: Not Given Documented by: Potassium Chloride (K-Dur) 20 meq PO QDAY [facility] Sodium Chloride (Sodium Chloride Flush Syringe 10 Ml) 10 ml IV BID [facility] Last Admin: 11/20/18 11:02 Dose: 10 ml Documented by: Sodium Chloride (Sodium Chloride Flush Syringe 10 Ml) 10 ml IV PRN PRN PRN Reason: LINE FLUSH Tramadol HCl (Ultram) 50 mg PO Q6H PRN PRN Reason: Pain, Moderate (4-6) Last Admin: 11/17/18 11:01 Dose: 50 mg Documented by: Review of Systems ROS unobtainable: due to mental status Exam Vital Signs Temp Pulse Resp BP Pulse Ox 97.5 F L 117 H 18 180/110 98 11/16/18 00:20 11/16/18 00:20 11/16/18 00:20 11/16/18 00:20 11/16/18 00:20 - General physical appearance Positive: well developed, well nourished, no distress - Eyes Positive: PERRL, normal occular movement - ENT Positive: normal pinna, normal nares, normal mucosa, no hearing loss, no congestion - Neck Positive: no masses, no bruits, trachea midline, no venous distension - Respiratory Positive: normal expansion, normal respiratory effort, clear to auscultation - Cardiovascular Rhythm: regular Heart Sounds: Present: S1 & S2. Absent: rub, click - Extremities Extremities: no ischemia, pulses symmetrical, No edema - Breasts Breasts: deferred - Abdomen Abdomen: Present: soft, bowel sounds normal. Absent: tender, distended Hernia: none - Genitourinary Female Genitourinary: deferred - Integumentary other (There is a 1.5 X 3 X 1.5 cm ulcer on the dorsum of her right foot with necrotic skin, SQ and possible muscle. There is a small amount of padron-brown non-foul smelling drainage. No associated cellulitis. DP and PT pulses on the right are non-palpable.) - Neurologic Neurologic: motor strength and sensation are grossly intact, CN II-XII intact - Psychiatric Psychiatric: other (Pt is essentially non-conversant. Acts "in a daze". Does not reposition as requested.) Results - Labs 11/20/18 05:30 11/20/18 05:30 Abnormal lab results 11/19/18 11/19/18 11/20/18 Range/Units 18:25 19:31 05:30 RBC 5.15 H (3.65-5.03) M/mm3 MCV 72 L (79-97) fl MCH 24 L (28-32) pg RDW 19.5 H (13.2-15.2) % Stanton % (Auto) 12.9 H (0.0-7.3) % PT (12.2-14.9) Sec. INR (0.87-1.13) APTT (24.2-36.6) Sec. Heparin Anti-Xa Level 0.74 H (0.3-0.7) U.I./ml Sodium (137-145) mmol/L Potassium (3.6-5.0) mmol/L Chloride (98-107) mmol/L BUN (7-17) mg/dL POC Glucose 107 H (70-105) Calcium (8.4-10.2) mg/dL Magnesium (1.7-2.3) mg/dL 11/20/18 11/20/18 11/20/18 Range/Units 05:30 05:30 05:30 RBC (3.65-5.03) M/mm3 MCV (79-97) fl MCH (28-32) pg RDW (13.2-15.2) % Stanton % (Auto) (0.0-7.3) % PT 16.9 H (12.2-14.9) Sec. INR 1.29 H (0.87-1.13) APTT 84.7 H* (24.2-36.6) Sec. Heparin Anti-Xa Level (0.3-0.7) U.I./ml Sodium 133 L (137-145) mmol/L Potassium 3.4 L (3.6-5.0) mmol/L Chloride 95.5 L (98-107) mmol/L BUN 18 H (7-17) mg/dL POC Glucose (70-105) Calcium 8.1 L (8.4-10.2) mg/dL Magnesium 1.40 L (1.7-2.3) mg/dL Diabetes panel 11/20/18 Range/Units 05:30 Sodium 133 L (137-145) mmol/L Potassium 3.4 L (3.6-5.0) mmol/L Chloride 95.5 L (98-107) mmol/L Carbon Dioxide 27 (22-30) mmol/L BUN 18 H (7-17) mg/dL Creatinine 1.0 (0.7-1.2) mg/dL Glucose 88 (65-100) mg/dL Calcium 8.1 L (8.4-10.2) mg/dL Calcium panel 11/20/18 Range/Units 05:30 Calcium 8.1 L (8.4-10.2) mg/dL Pituitary panel 11/20/18 Range/Units 05:30 Sodium 133 L (137-145) mmol/L Potassium 3.4 L (3.6-5.0) mmol/L Chloride 95.5 L (98-107) mmol/L Carbon Dioxide 27 (22-30) mmol/L BUN 18 H (7-17) mg/dL Creatinine 1.0 (0.7-1.2) mg/dL Glucose 88 (65-100) mg/dL Calcium 8.1 L (8.4-10.2) mg/dL Adrenal panel 11/20/18 Range/Units 05:30 Sodium 133 L (137-145) mmol/L Potassium 3.4 L (3.6-5.0) mmol/L Chloride 95.5 L (98-107) mmol/L Carbon Dioxide 27 (22-30) mmol/L BUN 18 H (7-17) mg/dL Creatinine 1.0 (0.7-1.2) mg/dL Glucose 88 (65-100) mg/dL Calcium 8.1 L (8.4-10.2) mg/dL Assessment and Plan - Patient Problems (1) Non-pressure chronic ulcer of other part of right foot with unspecified severity Current Visit: Yes Status: Acute Plan to address problem: 1) I will debride her right foot wound at the bedside tomorrow. 2) RLE arterial dopplers 3) MRI with and without contrast of right foot
[2018-11-21] MEDS: LASIX IV SCH ×2 (05:46→18:21)
[2018-11-21 06:11] LABS: Hematocrit 37.7 % (30.3-42.9); Hemoglobin 12.2 gm/dl (10.1-14.3); Mean Corpuscular HGB Conc 32 % (30-34); Mean Corpuscular Volume 72 fl (79-97); Platelet Count 211 K/mm3 (140-440); Red Blood Count 5.21 M/mm3 (3.65-5.03); Red Cell Distribution Width 19.6 % (13.2-15.2)
[2018-11-21 06:24] LABS: INR 1.17 (0.87-1.13)
[2018-11-21 06:30] LABS: BUN/Creatinine Ratio 19; Blood Urea Nitrogen 17 mg/dL (7-17); Calcium 8.6 mg/dL (8.4-10.2); Hemolysis Index 8
[2018-11-21] MEDS: KCL 10MEQ/100ML 10 MEQ/100 ML BAG IV SCH ×5 (08:19→12:54)
[2018-11-21] MEDS: APRESOLINE PO SCH ×3 (08:30→20:45)
[2018-11-21] MEDS ORDERED: HEPARIN/NS 5000 UNIT/500ML(CATH LAB) 0 ML IR ONE ×2 (08:41→11:09)
[2018-11-21] MEDS ORDERED: XYLOCAINE 2% INFILTRATI ONE ×2 (08:41→11:09)
[2018-11-21] MEDS ORDERED: HEPARIN 10,000 UNITS/10 ML ONE ×2 (08:41→11:09)
[2018-11-21] MEDS ORDERED: SUBLIMAZE ONE ×2 (08:41→11:10)
[2018-11-21] MEDS ORDERED: VERSED ONE ×2 (08:41→11:10)
[2018-11-21] MEDS ORDERED: CALAN ONE ×2 (08:41→11:09)
[2018-11-21] MEDS ORDERED: NITROGLYCERIN SYRINGE 0 ML ONE ×2 (08:42→11:09)
[2018-11-21] MEDS ORDERED: PLAVIX PO ONE (08:46)
[2018-11-21] MEDS ORDERED: PLAVIX ONE (08:54)
[2018-11-21] MEDS ORDERED: NACL 0.9% 500 ML 500 ML ONE (08:54)
[2018-11-21] MEDS ORDERED: NACL 0.9% 500 ML 500 ML IV SCH (09:00)
[2018-11-21] MEDS ORDERED: VALIUM PO NR (09:30)
[2018-11-21] MEDS ORDERED: K-DUR PO SCH (10:00)
[2018-11-21] MEDS ORDERED: ZOFRAN ONE (11:18)
[2018-11-21] MEDS ORDERED: ALUM-MAG HYDROX-SIMETH 200-200-20MG/5ML PO PRN (11:41)
--- NOTE | 2018-11-21 11:44 | Progress Note ---
Assessment and Plan after 45 minutes of discuss with pt and son, pt agreed for cardiac cath and explained the rationale and risk and benifits and discuss with son about chf , discuss with pt and son about meds and diet and need for lovenox and coumadin, pt after plavix had abd pain similar like after asa, post pone till am cardiac cath coronaries only and restart heparin and coumadin tonight. - Patient Problems (1) CHF (congestive heart failure) Current Visit: Yes Status: Acute Qualifiers: Heart failure type: systolic Heart failure chronicity: acute Qualified Code(s): I50.21 - Acute systolic (congestive) heart failure (2) Chronic venous insufficiency Current Visit: Yes Status: Acute (3) Hypertension Current Visit: Yes Status: Chronic Qualifiers: Hypertension type: essential hypertension Qualified Code(s): I10 - Essential (primary) hypertension (4) Left ventricular apical thrombus Current Visit: Yes Status: Acute (5) Nausea Current Visit: Yes Status: Acute (6) H/O peptic ulcer Current Visit: Yes Status: Resolved Subjective Date of service: 11/21/18 Principal diagnosis: HF; LV thrombus Interval history: pt having abd pain after plavix Objective Vital Signs Temp Pulse Pulse Resp Resp BP BP 11/21/18 11:34 92 H 18 130/87 11/21/18 07:47 97.5 F L 84 18 138/85 11/21/18 03:55 98.3 F 90 16 146/84 11/20/18 23:24 98.2 F 84 20 128/80 11/20/18 22:36 88 134/82 11/20/18 22:00 90 16 11/20/18 20:00 16 11/20/18 19:21 89 11/20/18 19:15 98.4 F 88 18 134/82 11/20/18 16:06 98.0 F 83 18 127/75 11/20/18 15:28 84 117/70 Pulse Ox 11/21/18 11:34 100 11/21/18 07:47 95 11/21/18 03:55 100 11/20/18 23:24 95 11/20/18 22:36 11/20/18 22:00 11/20/18 20:00 11/20/18 19:21 11/20/18 19:15 92 11/20/18 16:06 97 11/20/18 15:28 - Physical Examination General: No Apparent Distress HEENT: Positive: EOMI, Normocephaly, Mucus Membranes Moist Neck: Positive: neck supple, trachea midline Cardiac: Positive: Reg Rate and Rhythm Lungs: Positive: clear to auscultation Neuro: Positive: Grossly Intact Abdomen: Positive: Soft, Active Bowel Sounds. Negative: Tender Skin: Positive: Ulceration (on legs), Other (changes of chronic venous stasis in both feet) Extremities: Present: +1 Edema - Labs and Meds Coagulation 11/20/18 11/21/18 Range/Units 05:30 05:48 PT 15.7 H (12.2-14.9) Sec. INR 1.17 H (0.87-1.13) APTT 84.7 H* (24.2-36.6) Sec. CBC 11/21/18 Range/Units 05:48 WBC 5.3 (4.5-11.0) K/mm3 RBC 5.21 H (3.65-5.03) M/mm3 Hgb 12.2 (10.1-14.3) gm/dl Hct 37.7 (30.3-42.9) % Plt Count 211 (140-440) K/mm3 Comprehensive Metabolic Panel 11/21/18 Range/Units 05:48 Sodium 137 (137-145) mmol/L Potassium 3.1 L (3.6-5.0) mmol/L Chloride 97.1 L (98-107) mmol/L Carbon Dioxide 26 (22-30) mmol/L BUN 17 (7-17) mg/dL Creatinine 0.9 (0.7-1.2) mg/dL Glucose 81 (65-100) mg/dL Calcium 8.6 (8.4-10.2) mg/dL - Imaging and Cardiology EKG: image reviewed Echo: image reviewed - Telemetry EKG Rhythm: Sinus Rhythm - EKG Sinus rhythms and dysrhythmias: sinus rhythm
--- NOTE | 2018-11-21 13:25 | Post Operative Note ---
Pre-op diagnosis: Right dorsal foot wound with necrotic muscle Post-op diagnosis: same Procedure: Debridement of right dorsal foot wound of necrotic muscle/fascia Anesthesia: none Surgeon: GARCIA ANDREWS Estimated blood loss: minimal Pathology: none Specimen disposition: discarded Condition: stable Disposition: no change
[2018-11-21] MEDS: MIRALAX 3350 PO SCH (13:52)
[2018-11-21] MEDS ORDERED: HEPARIN/ 0.45% NACL-25,000 UNIT/500 ML 25,000 UNIT/500 ML BAG IV SCH (14:00)
--- NOTE | 2018-11-21 14:21 | Progress Note ---
Assessment and Plan Acute Left ventricular apical thrombus Uncontrolled hypertension Acute heart failure with reduced ejection fraction, Ef 15% Bilateral leg edema, likely from CHF, Hypertensive heart disease Chronic venous insufficiency H/O peptic ulcer - monitor with serial CE and EKG - consulted cardiology - cardiac diet now, daily weights, monitor in's and O's - plan for coronary angiography to r/o ischemic CMP postponded till tomorrow. - Cont present cardiac management, including IV lasix, coreg, losartan, heparin gtt. - --Plan to initiate coumadin following ischemic evaluation. - negative BLE venous dopplers. - provide DVT Px with heparin ggt Brief History: Pt presented with a one-month history of bilateral leg edema. Being treated for acutely decompensated HF and echo showed a mural thrombus at the LV apex measuring 1.4 x 1.2 cm across, severe global LV hypokinesis and an EF of 15% Radiological data: Chest x-ray A 2-D echo Hospitalist Physical exam: GENERAL: elderly AAF lying on bed appeared to be in no discomfort. HEENT: Normocephalic. Atraumatic. No conjunctival congestion or icterus. Patient has moist mucous membranes. NECK: Supple. Trachea midline. CHEST/LUNGS: Clear to auscultated bilaterally, breathing nonlabored. No wheezes crackles or rhonchi. HEART/CARDIOVASCULAR: Regular in rate and rhythm. S1 and S2 positive. ABDOMEN: Abdomen is soft, nontender. Patient has normal bowel sounds. SKIN: There is no rash. Warm and dry. NEURO: No focal motor deficit. Follows command. MUSCULOSKELETAL: No joint effusion or tenderness. EXTRIMITY: No edema, no cyanosis or clubbing. PSYCH: Cooperative. Subjective Date of service: 11/20/18 Principal diagnosis: HF; LV thrombus Interval history: patient seen and examined sttaes she wants her Son to be present during the cardiac cath no chest pain, refused to get cath today, planned for tomorrow Objective - Constitutional Vitals: Vital Signs - 12hr 11/21/18 11/21/18 11/21/18 03:55 07:47 10:00 Temperature 98.3 F 97.5 F L Pulse Rate 90 84 90 Respiratory 16 18 Rate Blood Pressure 146/84 138/85 Blood Pressure [Left] O2 Sat by Pulse 100 95 Oximetry 05/02/19 05/02/19 05/02/19 11:34 12:07 12:36 Temperature 98.0 F Pulse Rate 92 H 62 90 Respiratory 18 18 18 Rate Blood Pressure 149/100 Blood Pressure 130/87 133/83 [Left] O2 Sat by Pulse 100 100 97 Oximetry - Labs CBC & Chem 7: 11/21/18 05:48 11/21/18 05:48 Labs: Abnormal lab results 11/21/18 11/21/18 11/21/18 Range/Units 05:48 05:48 05:48 RBC 5.21 H (3.65-5.03) M/mm3 MCV 72 L (79-97) fl MCH 23 L (28-32) pg RDW 19.6 H (13.2-15.2) % PT 15.7 H (12.2-14.9) Sec. INR 1.17 H (0.87-1.13) Potassium 3.1 L (3.6-5.0) mmol/L Chloride 97.1 L (98-107) mmol/L POC Glucose (70-105) 11/21/18 Range/Units 12:44 RBC (3.65-5.03) M/mm3 MCV (79-97) fl MCH (28-32) pg RDW (13.2-15.2) % PT (12.2-14.9) Sec. INR (0.87-1.13) Potassium (3.6-5.0) mmol/L Chloride (98-107) mmol/L POC Glucose 65 L (70-105)
--- NOTE | 2018-11-21 14:23 | Progress Note ---
Assessment and Plan Acute Left ventricular apical thrombus Uncontrolled hypertension Acute heart failure with reduced ejection fraction, Ef 15% Bilateral leg edema, likely from CHF, Hypertensive heart disease Chronic venous insufficiency H/O peptic ulcer Right foot wound - monitor with serial CE and EKG - consulted cardiology - cardiac diet now, daily weights, monitor in's and O's - plan for coronary angiography to r/o ischemic CMP postponded till tomorrow. - Cont present cardiac management, including IV lasix, coreg, losartan, heparin gtt. - --Plan to initiate coumadin following ischemic evaluation. - negative BLE venous dopplers. - provide DVT Px with heparin ggt Brief History: Pt presented with a one-month history of bilateral leg edema. Being treated for acutely decompensated HF and echo showed a mural thrombus at the LV apex measuring 1.4 x 1.2 cm across, severe global LV hypokinesis and an EF of 15% Radiological data: Chest x-ray A 2-D echo Hospitalist Physical exam: GENERAL: elderly AAF lying on bed appeared to be in no discomfort. HEENT: Normocephalic. Atraumatic. No conjunctival congestion or icterus. Patient has moist mucous membranes. NECK: Supple. Trachea midline. CHEST/LUNGS: Clear to auscultated bilaterally, breathing nonlabored. No wheezes crackles or rhonchi. HEART/CARDIOVASCULAR: Regular in rate and rhythm. S1 and S2 positive. ABDOMEN: Abdomen is soft, nontender. Patient has normal bowel sounds. SKIN: There is no rash. Warm and dry. NEURO: No focal motor deficit. Follows command. MUSCULOSKELETAL: No joint effusion or tenderness. EXTRIMITY: No edema, no cyanosis or clubbing. right foot wound, present on admission PSYCH: Cooperative. Subjective Date of service: 11/21/18 Principal diagnosis: HF; LV thrombus Interval history: patient seen and examined sttaes she wants her Son to be present during the cardiac cath no chest pain, refused to get cath today, planned for tomorrow Objective - Constitutional Vitals: Vital Signs - 12hr 11/21/18 11/21/18 11/21/18 03:55 07:47 10:00 Temperature 98.3 F 97.5 F L Pulse Rate 90 84 90 Respiratory 16 18 Rate Blood Pressure 146/84 138/85 Blood Pressure [Left] O2 Sat by Pulse 100 95 Oximetry 11/21/18 11/21/1819 11:34 12:07 12:36 Temperature 98.0 F Pulse Rate 92 H 62 90 Respiratory 18 18 18 Rate Blood Pressure 149/100 Blood Pressure 130/87 133/83 [Left] O2 Sat by Pulse 100 100 97 Oximetry - Labs CBC & Chem 7: 11/21/18 05:48 11/21/18 05:48 Labs: Abnormal lab results 11/21/18 11/21/18 11/21/18 Range/Units 05:48 05:48 05:48 RBC 5.21 H (3.65-5.03) M/mm3 MCV 72 L (79-97) fl MCH 23 L (28-32) pg RDW 19.6 H (13.2-15.2) % PT 15.7 H (12.2-14.9) Sec. INR 1.17 H (0.87-1.13) Potassium 3.1 L (3.6-5.0) mmol/L Chloride 97.1 L (98-107) mmol/L POC Glucose (70-105) 11/21/18 Range/Units 12:44 RBC (3.65-5.03) M/mm3 MCV (79-97) fl MCH (28-32) pg RDW (13.2-15.2) % PT (12.2-14.9) Sec. INR (0.87-1.13) Potassium (3.6-5.0) mmol/L Chloride (98-107) mmol/L POC Glucose 65 L (70-105)
[2018-11-21] MEDS: ALDACTONE PO SCH (14:35)
[2018-11-21] MEDS: COZAAR PO SCH (14:35)
[2018-11-21] MEDS: COREG PO SCH ×2 (14:35→22:36)
[2018-11-21] MEDS: PROTONIX PO SCH (14:35)
[2018-11-21] MEDS: COLACE PO SCH ×2 (14:35→22:36)
[2018-11-21] MEDS: SODIUM CHLORIDE FLUSH SYRINGE 10 ML IV SCH ×2 (14:36→22:37)
[2018-11-21] MEDS: K-DUR PO SCH (14:38)
[2018-11-21] MEDS ORDERED: HEPARIN 10,000 UNITS/10 ML IV ONE (14:58)
[2018-11-21] MEDS: K-DUR PO ONE ×2 (16:30→18:21)
[2018-11-21] MEDS: COUMADIN PO SCH (18:22)
[2018-11-21] MEDS ORDERED: K-DUR PO ONE (22:00)
--- NOTE | 2018-11-22 02:25 | Vascular Lab Report ---
PROCEDURE: US RIGHT LOWER EXTREMITY ARTERIAL DUPLEX DOPPLER TECHNIQUE: Duplex Doppler ultrasound of either the RIGHT lower extremity arteries or arterial bypass grafts was performed with image documentation. CPT 92880-SQ HISTORY: Foot ulcer COMPARISONS: None . FINDINGS: Arterial waveforms: Triphasic . Thrombus/Stenosis: None . Color signal: Normal . Significant segmental velocity differential: None . Arterial bypass graft: Not present . IMPRESSION: No evidence of significant arterial insufficiency in the RIGHT lower extremity. This document is electronically signed by Cristóbal Regan MD., Nov 22 2018 02:22:42 AM ET
[2018-11-22 05:53] LABS: Hematocrit 38.7 % (30.3-42.9); Hemoglobin 12.4 gm/dl (10.1-14.3); Mean Corpuscular HGB Conc 32 % (30-34); Mean Corpuscular Volume 73 fl (79-97); Platelet Count 214 K/mm3 (140-440); Red Blood Count 5.34 M/mm3 (3.65-5.03); Red Cell Distribution Width 19.5 % (13.2-15.2)
[2018-11-22 05:58] LABS: INR 1.17 (0.87-1.13)
[2018-11-22 06:06] LABS: BUN/Creatinine Ratio 15; Blood Urea Nitrogen 17 mg/dL (7-17); Calcium 8.4 mg/dL (8.4-10.2); Hemolysis Index 4
--- NOTE | 2018-11-22 09:15 | Progress Note ---
Assessment and Plan >30 minutes of discuss with pt and son, patient is refusing cardiac catheterization this is the third day prior to patient's arrival patient had no abdominal pain or shortness of breath. Once patient arrived had some abdominal pain but no tenderness is very minimal edema patient is on oral Lasix oral Aldactone carvedilol 12-1/2 twice a day and hydralazine 50 twice a day losartan 100 will be on Coumadin started yesterday and Lovenox bridging will follow on the [facility] clinic discussed in detail with the patient patient's son and from the nurse felt the need to be compliant with medications diet and follow-up - Patient Problems (1) CHF (congestive heart failure) Current Visit: Yes Status: Acute Qualifiers: Heart failure type: systolic Heart failure chronicity: acute Qualified Code(s): I50.21 - Acute systolic (congestive) heart failure (2) Chronic venous insufficiency Current Visit: Yes Status: Acute (3) Hypertension Current Visit: Yes Status: Chronic Qualifiers: Hypertension type: essential hypertension Qualified Code(s): I10 - Essential (primary) hypertension (4) Left ventricular apical thrombus Current Visit: Yes Status: Acute (5) Nausea Current Visit: Yes Status: Acute (6) H/O peptic ulcer Current Visit: Yes Status: Resolved Subjective Date of service: 11/22/18 Principal diagnosis: HF; LV thrombus Interval history: no chest pain or sob Objective Vital Signs Temp Pulse Pulse Resp BP BP Pulse Ox 11/22/18 09:07 98.0 F 90 18 131/78 99 11/22/18 04:14 98.7 F 91 H 20 135/79 95 11/21/18 23:18 98.2 F 99 H 16 102/59 96 11/21/18 22:36 96 H 135/84 11/21/18 22:00 95 H 87 16 11/21/18 20:45 96 H 135/84 11/21/18 20:02 98.0 F 96 H 20 135/84 95 11/21/18 17:12 98.6 F 84 18 156/82 92 11/21/18 16:43 90 11/21/18 12:36 98.0 F 90 18 149/100 97 11/21/18 12:07 62 18 133/83 100 11/21/18 11:34 92 H 18 130/87 100 11/21/18 10:00 90 - Physical Examination General: No Apparent Distress HEENT: Positive: EOMI, Normocephaly, Mucus Membranes Moist Neck: Positive: neck supple, trachea midline Cardiac: Positive: Reg Rate and Rhythm Lungs: Positive: clear to auscultation Neuro: Positive: Grossly Intact Abdomen: Positive: Soft, Active Bowel Sounds. Negative: Tender Skin: Positive: Ulceration (on legs), Other (changes of chronic venous stasis in both feet) Extremities: Absent: edema - Labs and Meds Coagulation 11/22/18 Range/Units 05:30 PT 15.6 H (12.2-14.9) Sec. INR 1.17 H (0.87-1.13) CBC 11/22/18 Range/Units 05:30 WBC 5.4 (4.5-11.0) K/mm3 RBC 5.34 H (3.65-5.03) M/mm3 Hgb 12.4 (10.1-14.3) gm/dl Hct 38.7 (30.3-42.9) % Plt Count 214 (140-440) K/mm3 Comprehensive Metabolic Panel 11/22/18 Range/Units 05:30 Sodium 134 L (137-145) mmol/L Potassium 4.1 D (3.6-5.0) mmol/L Chloride 97.4 L (98-107) mmol/L Carbon Dioxide 28 (22-30) mmol/L BUN 17 (7-17) mg/dL Creatinine 1.1 (0.7-1.2) mg/dL Glucose 95 (65-100) mg/dL Calcium 8.4 (8.4-10.2) mg/dL - Imaging and Cardiology EKG: image reviewed Echo: image reviewed - Telemetry EKG Rhythm: Sinus Rhythm (no vtach for more than 48 hours) - EKG Sinus rhythms and dysrhythmias: sinus rhythm
[2018-11-22] MEDS: MIRALAX 3350 PO SCH (09:41)
[2018-11-22] MEDS: PROTONIX PO SCH (09:43)
[2018-11-22] MEDS: ALDACTONE PO SCH (09:43)
[2018-11-22] MEDS: K-DUR PO SCH (09:43)
[2018-11-22] MEDS: COZAAR PO SCH (09:45)
[2018-11-22] MEDS: COLACE PO SCH (09:45)
[2018-11-22] MEDS: SODIUM CHLORIDE FLUSH SYRINGE 10 ML IV SCH (09:46)
[2018-11-22] MEDS ORDERED: APRESOLINE PO SCH (10:00)
[2018-11-22] MEDS ORDERED: LASIX PO SCH (10:00)
[2018-11-22] MEDS ORDERED: COREG PO SCH (10:00)
[2018-11-22] MEDS ORDERED: LOVENOX SUB-Q SCH (10:00)
--- NOTE | 2018-11-22 11:11 | Discharge Summary ---
Providers - Providers Date of Admission: 11/16/18 04:41 Date of discharge: 11/22/18 Attending physician: DANIEL JOHNSON 11/16/18 07:21 Consult to Wound/ET Nurse [CONS] Routine Reason For Exam: wound eval 11/17/18 17:13 Consult to Cardiology [CONS] Routine Consulting Provider: JAYLENE KENT Reason For Exam: congestive heart failure 11/19/18 11:14 Physical Therapy Evaluation and Treat [CONS] Routine Comment: Reason For Exam: placement 11/19/18 15:18 Consult to Physician [CONS] Routine Comment: Consulting Provider: GARCIA BRAVO Physician Instructions: Wound care consultation for right foot. Reason For Exam: wound [facility] Condition: Fair Hospital course: Brief History: Patient presented with a one-month history of bilateral leg edema. Being treated for acutely decompensated HF and echo showed a mural thrombus at the LV apex measuring 1.4 x 1.2 cm across, severe global LV hypokinesis and an EF of 15%. She was placed on IV lasix, coreg, losartan, heparin gtt with plan to initiate coumadin following ischemic evaluation. Monitored with cardiac diet , daily weights, in's and O's. Consulted cardiology and recommended for coronary angiography to r/o ischemic CMP, but patient refused after mutiple attempts and discussion. S/p debridement of right dorsal foot wound (POA) of necrotic muscle/fascia by Dr. bravo. She was then placed on lovenox to bridge with coumadin, she will f/u at cardiology clinic for INR check. Plan of care also discussed with patient's Son, agreeable with management. She was then discharged home with . Radiological data: Chest x-ray A 2-D echo Abdominal XRY LE arterial and venous doppler Foot xry Tibia-fibula XRY Discharge diagnosis: Acute Left ventricular apical thrombus Uncontrolled hypertension with Hypertensive heart disease Acute heart failure with reduced ejection fraction, Ef 15% Bilateral leg edema, likely from CHF, Chronic venous insufficiency H/O peptic ulcer Right foot wound s/p debridement Hospitalist Physical exam: GENERAL: elderly AAF lying on bed appeared to be in no discomfort. HEENT: Normocephalic. Atraumatic. No conjunctival congestion or icterus. Patient has moist mucous membranes. NECK: Supple. Trachea midline. CHEST/LUNGS: Clear to auscultated bilaterally, breathing nonlabored. No wheezes crackles or rhonchi. HEART/CARDIOVASCULAR: Regular in rate and rhythm. S1 and S2 positive. ABDOMEN: Abdomen is soft, nontender. Patient has normal bowel sounds. SKIN: There is no rash. Warm and dry. NEURO: No focal motor deficit. Follows command. MUSCULOSKELETAL: No joint effusion or tenderness. EXTRIMITY: No edema, no cyanosis or clubbing. right foot wound with dressing, present on admission PSYCH: Cooperative. Disposition: [id number] HOME UNDER HOME [facility] Time spent for discharge: 34 minutes Core Measure Documentation - Palliative Care Palliative Care/ Comfort Measures: Not Applicable - Core Measures Any of the following diagnoses?: heart failure - Heart Failure Discharge Requirements KIRILL/ARB for LVSD if EF <40%: Yes Beta cullen at discharge: Yes Exam - Constitutional Vitals: Temp Pulse Resp BP Pulse Ox 98.0 F 81 18 131/78 99 11/22/18 09:07 11/22/18 09:45 11/22/18 09:07 11/22/18 09:45 11/22/18 09:07 Plan Activity: advance as tolerated, fall precautions Weight Bearing Status: Non-Weight Bearing Diet: low fat, low salt Follow up with: [facility] MD DIANE [Primary Care Provider] - 3-5 Days JUVENCIO PARKS MD [Staff Physician] - 7 Days (Follow up in our [place] office with Dr. Parks for post-hospital f/u and INR check on 11/25/2018 @ 11:00AM) Forms: Warfarin Discharge Instruction Prescriptions: Spironolactone [Aldactone] 25 mg PO QDAY #30 tablet hydrALAZINE [Apresoline TAB] 50 mg PO BID #60 tablet Carvedilol [Coreg] 12.5 mg PO BID #60 tablet Warfarin [Coumadin] 7.5 mg PO DAILY@1700 #14 tablet Losartan [Cozaar] 100 mg PO QDAY #30 tablet Furosemide [Lasix TAB] 40 mg PO QDAY #30 tablet Enoxaparin [Lovenox] 90 mg SUB-Q Q12HR #10 syringe Pantoprazole [Protonix TAB] 40 mg PO QDAY #30 tablet
--- NOTE | 2018-11-22 11:12 | Event Note ---
Date: 11/22/18 Follow up in our [place] office with Dr. Parks (Dr. Alison mccoy) for post-hospital f/u and INR check on 11/25/2018 @ 11:00AM. Dianne FOFANA NP / DR. PARKS
--- NOTE | 2018-11-22 13:34 | XRay Report ---
KUB: 11/22/18 12:26:00 CLINICAL: Nausea and vomiting. COMPARISON: 11/19/18 FINDINGS: The examination was performed portable. The bowel gas pattern is normal with moderate stool throughout the colon and gas in the rectum. No distended small bowel. A few mildly distended loops of colon. No pneumoperitoneum. Benign pelvic calcifications. IMPRESSION: Negative abdomen with no bowel obstruction or evidence of perforation.
[2018-11-22 16:26] VITALS: BP 116/61
[2018-11-22] MEDS: COUMADIN PO SCH (17:36)
== END 2018-11-22 18:10 | disposition home health service (06) | DRG 579 ==
LOC: ED 00:03 → 4A 04:41
PROVIDERS: ADMIT Internal Medicine; ATTEND Internal Medicine
PROC: 0KBV0ZZ Excision of Right Foot Muscle, Open Approach (ICD-10-PCS; principal; 2018-11-21)
DX: L97.519 Non-pressure chronic ulcer of other part of right foot with unspecified severity (principal); I50.21 Acute systolic (congestive) heart failure; I24.0 Acute coronary thrombosis not resulting in myocardial infarction; I42.9 Cardiomyopathy, unspecified; I11.0 Hypertensive heart disease with heart failure; I87.2 Venous insufficiency (chronic) (peripheral); E87.6 Hypokalemia; F17.210 Nicotine dependence, cigarettes, uncomplicated; G89.29 Other chronic pain; Z82.49 Family history of ischemic heart disease and other diseases of the circulatory system; Z91.040 Latex allergy status; Z87.11 Personal history of peptic ulcer disease
CPT/HCPCS: 36415; 71045; 74018; 80048; 80076; 82962; 83735; 83880; 84484; 85014; 85018; 85025; 85027; 85049; 85520; 85610; 85730; 93005; 93010; 93306; 93970; 96365; 96366; 96375; G0378; J0360; J1644; J1650; J1940; J2250; J2270; J2405; J3010; J3370; J3475; J3480; J7040

== ENCOUNTER 2018-11-27 18:51 | Emergency (ER) | payer OTHER ==
[2018-11-27 19:54] LABS: Hematocrit 40.8 % (30.3-42.9); Hemoglobin 13.6 gm/dl (10.1-14.3); Mean Corpuscular HGB Conc 33 % (30-34); Mean Corpuscular Volume 72 fl (79-97); Platelet Count 274 K/mm3 (140-440)
[2018-11-27 19:55] LABS: Red Cell Distribution Width 20.5 % (13.2-15.2)
[2018-11-27 20:00] LABS: INR 3.19 (0.87-1.13)
[2018-11-27 20:03] LABS: BUN/Creatinine Ratio 9; Blood Urea Nitrogen 9 mg/dL (7-17); Calcium 9.4 mg/dL (8.4-10.2); Hemolysis Index 25
--- NOTE | 2018-11-27 20:06 | Cat Scan Report ---
PROCEDURE: CT HEAD/BRAIN WO CON TECHNIQUE: Computerized tomography of the head was performed without contrast material. CT DOSE LENGTH PRODUCT: 1048.1 mGycm HISTORY: pt confused per family, on anticoagulants COMPARISONS: None . FINDINGS: Skull and scalp: Normal . Paranasal sinuses: Normal . Ventricles and subarachnoid spaces: Normal . Cerebrum: No evidence of hemorrhage, acute infarction or mass . Low-density in the periventricular w ange matter in the posterior centrum semiovale bilaterally suggest small vessel ischemic changes. Cerebellum and brainstem: No evidence of hemorrhage, acute infarction or mass . Vasculature: Normal . Other: None . ASPECTS: 10 IMPRESSION: No acute intracranial abnormality. This document is electronically signed by Emerita Valdez MD., Nov 27 2018 08:04:44 PM ET
--- NOTE | 2018-11-27 21:24 | Emergency Department Report ---
ED ENT HPI - General Chief complaint: Skin/Abscess/Foreign Body Stated complaint: BLEEDING/SWOLLEN RT SIDE MOUTH PAIN Time Seen by Provider: 11/27/18 21:01 Source: patient Mode of arrival: Ambulatory Limitations: No Limitations - History of Present Illness Initial comments: Patient is 63 years old female with a recent diagnosis of congestive heart failu re. Patient started on Coumadin. Patient presented to the ER complaining of right jaw swelling since this morning. Patient denied any fever or chills. No chest pain or shortness of breath. MD complaint: tooth pain - Related Data Previous Rx's Medication Instructions Recorded Last Taken Type Carvedilol [Coreg] 12.5 mg PO BID #60 tablet 11/22/18 Unknown Rx Enoxaparin [Lovenox] 90 mg SUB-Q Q12HR #10 syringe 11/22/18 Unknown Rx Furosemide [Lasix TAB] 40 mg PO QDAY #30 tablet 11/22/18 Unknown Rx Losartan [Cozaar] 100 mg PO QDAY #30 tablet 11/22/18 Unknown Rx Pantoprazole [Protonix TAB] 40 mg PO QDAY #30 tablet 11/22/18 Unknown Rx Spironolactone [Aldactone] 25 mg PO QDAY #30 tablet 11/22/18 Unknown Rx Warfarin [Coumadin] 7.5 mg PO DAILY@1700 #14 tablet 11/22/18 Unknown Rx hydrALAZINE [Apresoline TAB] 50 mg PO BID #60 tablet 11/22/18 Unknown Rx Allergies Allergy/AdvReac Type Severity Reaction Status Date / Time latex Allergy Hives Verified 11/27/18 18:54 ED Dental HPI - General Chief complaint: Skin/Abscess/Foreign Body Stated complaint: BLEEDING/SWOLLEN RT SIDE MOUTH PAIN Time Seen by Provider: 11/27/18 21:01 Source: patient Mode of arrival: Ambulatory Limitations: No Limitations - Related Data Previous Rx's Medication Instructions Recorded Last Taken Type Carvedilol [Coreg] 12.5 mg PO BID #60 tablet 11/22/18 Unknown Rx Enoxaparin [Lovenox] 90 mg SUB-Q Q12HR #10 syringe 11/22/18 Unknown Rx Furosemide [Lasix TAB] 40 mg PO QDAY #30 tablet 11/22/18 Unknown Rx Losartan [Cozaar] 100 mg PO QDAY #30 tablet 11/22/18 Unknown Rx Pantoprazole [Protonix TAB] 40 mg PO QDAY #30 tablet 11/22/18 Unknown Rx Spironolactone [Aldactone] 25 mg PO QDAY #30 tablet 11/22/18 Unknown Rx Warfarin [Coumadin] 7.5 mg PO DAILY@1700 #14 tablet 11/22/18 Unknown Rx hydrALAZINE [Apresoline TAB] 50 mg PO BID #60 tablet 11/22/18 Unknown Rx Allergies Allergy/AdvReac Type Severity Reaction Status Date / Time latex Allergy Hives Verified 11/27/18 18:54 ED Review of Systems ROS: Stated complaint: BLEEDING/SWOLLEN RT SIDE MOUTH PAIN Other details as noted in HPI Comment: All other systems reviewed and negative Constitutional: denies: chills, fever ENT: dental pain Respiratory: denies: cough Cardiovascular: denies: chest pain, palpitations Gastrointestinal: denies: abdominal pain, nausea, vomiting Neurological: denies: headache, weakness ED Past Medical Hx - Past Medical History Hx Hypertension: Yes Hx Congestive Heart Failure: No Hx Diabetes: No Hx Asthma: No Hx COPD: No Additional medical history: Chronic Pain - Surgical History Additional Surgical History: Hernia Repair, Right Knee - Social History Smoking Status: Current Some Day Smoker Substance Use Type: None - Medications Home Medications: Home Medications Medication Instructions Recorded Confirmed Last Taken Type Carvedilol [Coreg] 12.5 mg PO BID #60 tablet 11/22/18 Unknown Rx Enoxaparin [Lovenox] 90 mg SUB-Q Q12HR #10 syringe 11/22/18 Unknown Rx Furosemide [Lasix TAB] 40 mg PO QDAY #30 tablet 11/22/18 Unknown Rx Losartan [Cozaar] 100 mg PO QDAY #30 tablet 11/22/18 Unknown Rx Pantoprazole [Protonix TAB] 40 mg PO QDAY #30 tablet 11/22/18 Unknown Rx Spironolactone [Aldactone] 25 mg PO QDAY #30 tablet 11/22/18 Unknown Rx Warfarin [Coumadin] 7.5 mg PO DAILY@1700 #14 tablet 11/22/18 Unknown Rx hydrALAZINE [Apresoline TAB] 50 mg PO BID #60 tablet 11/22/18 Unknown Rx ED Physical Exam - General Limitations: No Limitations General appearance: alert, in no apparent distress - Head Head exam: Present: atraumatic, normocephalic, normal inspection - ENT ENT exam: Present: other (right dorsal swelling, dental caries with clotted blood around the teeth but no active bleeding.) - Neck Neck exam: Present: normal inspection, full ROM. Absent: tenderness, meningismus - Respiratory Respiratory exam: Present: normal lung sounds bilaterally - Cardiovascular Cardiovascular Exam: Present: regular rate, normal rhythm, normal heart sounds - GI/Abdominal GI/Abdominal exam: Present: soft. Absent: distended, tenderness - Extremities Exam Extremities exam: Present: normal inspection, full ROM, normal capillary refill - Back Exam Back exam: Present: normal inspection, full ROM - Neurological Exam Neurological exam: Present: alert, oriented X3, CN II-XII intact, normal gait, reflexes normal - Skin Skin exam: Present: warm, intact, normal color ED Course Vital Signs 11/27/18 19:08 Temperature 98.4 F Pulse Rate 84 Respiratory 18 Rate Blood Pressure 149/95 O2 Sat by Pulse 98 Oximetry ED Medical Decision Making - Lab Data Result diagrams: 11/27/18 19:17 11/27/18 19:17 Critical care attestation.: If time is entered above; I have spent that time in minutes in the direct care of this critically ill patient, excluding procedure time. ED Disposition Clinical Impression: Dental abscess Disposition: DC-01 TO HOME OR SELFCARE Is pt being admited?: No Condition: Stable Instructions: Dental Abscess (ED) Referrals: PRIMARY CARE, [Referring] - 3-5 Days
[2018-11-27 22:05] VITALS: BP 164/107
== END 2018-11-27 22:03 | disposition home or self-care (01) ==
LOC: ED 18:51
DX: K04.7 Periapical abscess without sinus (principal); I10 Essential (primary) hypertension; F17.200 Nicotine dependence, unspecified, uncomplicated; Z91.040 Latex allergy status
CPT/HCPCS: 36415; 70450; 80048; 85027; 85610; 85730